=== PATIENT | female | born 1965 | race Hispanic/Latino ===

== ENCOUNTER 2021-05-22 16:51 | Emergency (ER) | payer BC ==
[~2021-05-22] VITALS: Ht 165.1 cm; Wt 99.8 kg
[2021-05-22] MEDS ORDERED: 0.9%NACL 1000ML 1,000 ML IV SCH (17:00)
[2021-05-22 17:02] VITALS: BP 133/83
[2021-05-22 17:29] LABS: BASOPHILS % (AUTO) 0.2 % (0.0-5.0); HEMATOCRIT 40.5 % (36-48); LYMPHOCYTES % (AUTO) 11.6 % (21.0-51.0); MEAN CORPUSCULAR HEMOGLOBIN 26.2 pg (27.0-33.0); MEAN CORPUSCULAR HGB CONC 32.1 g/dL (32.0-36.0); MEAN CORPUSCULAR VOLUME 81.7 fL (79-99); MONOCYTES % (AUTO) 8.7 % (3.0-13.0); PLATELET COUNT (AUTO) 198 K/uL (130-400); RED BLOOD CELL COUNT(AUTO) 4.96 MIL/uL (4.00-5.50); RED CELL DISTRIBUTION WIDTH 13.2 % (11.0-15.5); WHITE BLOOD COUNT (AUTO) 8.4 K/uL (4.8-10.8)
[2021-05-22] MEDS ORDERED: FAMOTIDINE 20MG VIAL IV ONE (17:30)
[2021-05-22] MEDS ORDERED: LIDOCAINE HCL 2% VISCOUS 15 ML UDCUP PO ONE (17:30)
[2021-05-22] MEDS ORDERED: DICYCLOMINE HCL 10 MG/5 ML ML PO ONE (17:30)
[2021-05-22] MEDS ORDERED: ONDANSETRON 4MG INJ IVP ONE (17:30)
[2021-05-22] MEDS ORDERED: MAG/ALUM/SIMETH 30 ML UDCUP PO ONE (17:30)
[2021-05-22 17:36] LABS: APPEARANCE,URINE CLOUDY (CLEAR); BILIRUBIN,URINE NEGATIVE (NEGATIVE); COLOR,URINE YELLOW (YELLOW); GLUCOSE, URINE (UA) NEGATIVE (NEGATIVE); KETONES,URINE 40 mg/dL (NEGATIVE); LEUKOCYTE ESTERASE ,URINE TRACE (NEGATIVE); NITRATE,URINE POSITIVE (NEGATIVE); OCCULT BLOOD,URINE TRACE-INTACT (NEGATIVE); PH,URINE 6.5 (5.0-8.0); PROTEIN,URINE TRACE mg/dL (NEGATIVE)
[2021-05-22 17:48] LABS: BACTERIA,URINE Moderate /HPF (None Seen)
[2021-05-22 17:49] LABS: SQUAMOUS EPITHELIAL CELL,UR Few /HPF (0-2)
[2021-05-22] MEDS ORDERED: CEFTRIAXONE 1G VIAL IVP ONE (18:00)
[2021-05-22 18:02] LABS: ALBUMIN 3.7 g/dL (3.5-5.0); BILIRUBIN,TOTAL 0.5 mg/dL (0.2-1.0); CREATININE 0.9 mg/dL (0.5-1.5); POTASSIUM 3.3 mmol/L (3.5-5.1); TOTAL PROTEIN, SERUM 8.2 g/dL (6.0-8.3)
[2021-05-22] MEDS ORDERED: FAMO-136 PO (18:09)
[2021-05-22] MEDS ORDERED: CEPH500B PO (18:09)
[2021-05-22] MEDS ORDERED: ONDA4TAB10 PO (18:09)
[2021-05-22] MEDS ORDERED: ACETAMINOPHEN 500 MG TABLET ONE (18:09)
[2021-05-22] MEDS ORDERED: DICY20TA2 PO (18:09)
[2021-05-22] MEDS ORDERED: POTASSIUM BICARB/CIT AC 25 MEQ TABLET.EFF PO ONE (18:30)
[2021-05-22] MEDS ORDERED: ACETAMINOPHEN 500 MG TABLET PO ONE (18:30)
== END 2021-05-22 18:28 | disposition home or self-care (01) ==
LOC: EDH 16:51
DX: N39.0 Urinary tract infection, site not specified (principal); K29.70 Gastritis, unspecified, without bleeding; I95.1 Orthostatic hypotension; Z20.822 Contact with and (suspected) exposure to COVID-19; E66.01 Morbid (severe) obesity due to excess calories; Z90.49 Acquired absence of other specified parts of digestive tract; Z68.36 Body mass index [BMI] 36.0-36.9, adult
CPT/HCPCS: 36415; 71045; 80053; 81001; 83605; 83690; 84484; 85025; 87040 ×2; 87077; 87088; 87186; 87635; 87804 ×2; 96361; 96374; 96375; 99284; C9803; J0696; J2405; J3490; J7030

== ENCOUNTER 2025-02-23 13:37 | Emergency (ER) | payer BC, OTHER ==
[~2025-02-23] VITALS: Ht 165.1 cm; Wt 90.7 kg
[~2025-02-23 13:37] MED LIST: CEPH500B PO; DICY20TA2 PO; FAMO-136 PO; ONDA-243 PO
--- NOTE | 2025-02-23 13:45 | ERN ---
ED Note History of Present Illness Stated Complaint: KNEE PAIN Chief Complaint: Knee Injury/Swelling Time Seen by MD: 13:39 Dictation: PATIENT IS A 60 YEAR WITH KNOWN LEFT MEDIAL MENISCUS WHO HAD A FALL AND THAT IS SAME KNEE TODAY. SHE HAS BEEN SEEN BY DR. BOWEN IN [place] AND PENDING A SURGERY NEXT SUMMER ON-CALL. SHE STATES SHE HAS HAD NOTHING PRIOR TO ARRIVAL FOR PAIN. NO SHORTENING OR ROTATION OF LEFT LEG. SHE IS MORBIDLY OBESE. DISTAL NEUROVASCULAR CMS INTACT. Allergies: Coded Allergies: No Known Allergies (Unverified Allergy, Unknown, 05/22/21) Home Meds Active Scripts Famotidine (Pepcid) 20 Mg Tablet, 20 MG PO BID, #60 TAB Prov:ARTEM GIBSON 05/22/21 Ondansetron (Ondansetron Odt) 4 Mg Tab.rapdis, 4 MG PO TIDP, #21 TAB Prov:ARTEM GIBSON 05/22/21 Dicyclomine HCl (Bentyl) 20 Mg Tab, 20 MG PO QIDP, #28 TAB Prov:ARTEM GIBSON 05/22/21 Cephalexin Monohydrate (Keflex) 500 Mg Cap, 500 MG PO TID for 7 Days, #21 CAP Prov:ARTEM GIBSON 05/22/21 Past Medical History Past Medical History: No Pertinent History Additional Past Medical Hx: Morbid obese Surgical History: Cholecystectomy, Family History: Negative Social History: Negative History: Not Applicable RN Note Reviewed/Agreed w/PFSH: Yes Review of System Dictation CONSTITUTIONAL: NEGATIVE EXCEPT FOR HPI HEAD/FACE: NEGATIVE EXCEPT FOR HPI EENT: NEGATIVE EXCEPT FOR HPI RESPIRATORY: NEGATIVE EXCEPT FOR HPI GASTROINTESTINAL/ABDOMINAL: NEGATIVE EXCEPT FOR HPI GENITOURINARY: NEGATIVE EXCEPT FOR HPI MUSCULOSKELETAL: NEGATIVE EXCEPT FOR HPI LEFT KNEE PAIN INTEGUMENTARY: NEGATIVE EXCEPT FOR HPI NEUROLOGICAL/PSYCH: NEGATIVE EXCEPT FOR HPI HEMATOLOGIC/LYMPHATIC: NEGATIVE EXCEPT FOR HPI ALL SYSTEMS NEGATIVE, EXCEPT NOTED ABOVE. 13 POINT REVIEW OF SYSTEMS ASSESSED AND ALL NEGATIVE EXCEPT FOR ABOVE. Initial Vital Sign VS Vital Signs Date Time Temp Pulse Resp B/P (MAP) Pulse Ox O2 Delivery O2 Flow Rate FiO2 02/23/25 13:38 97.0 74 20 104/72 97 Room Air 02/23/25 14:16 0 21 Physical Exam Dictation VITAL SIGNS REVIEWED GENERAL APPEARANCE: ALERT, ORIENTED X 3, MODERATE ACUTE DISTRESS, WELL DEVELOPED, NOURISHED. HEAD AND FACE: NON-TRAUMATIC. EYES: PERRL, PINK CONJUNCTIVAS, EYELID NO TRAUMA, ANTERIOR CHAMBER WITH ARCUS SENILIS. EARS: PINNAS INTACT AND NO SIGNS OF TRAUMA OR ERYTHEMA EAR CANALS CLEAR AND NO DISCHARGE TM NO ERYTHEMA NOSE: NO DISCHARGE, NO BLEEDING. OROPHARYNX: MOUTH NORMAL, TONGUE PINK, PHARYNX CLEAR,NO ERYTHEMA, TONSILS NO EXUDATES, NO ABSCESSES NOTED, MUCOUS MEMBRANE MOIST NECK: SUPPLE, NON-TENDER, NO THYROMEGALY, NO MASSES, NO JVD, NO BRUITS BREAST:DEFERRED CHEST:NO TENDERNESS, NO CREPITUS, NO PARADOXICAL MOVEMENT, NO RETRACTIONS LUNGS:CLEAR, WELL-VENTILATED, SYMMETRIC, NO RALES, NO WHEEZING, NO RHONCHI, NO STRIDOR, GOOD BREATH SOUNDS BILATERALLY HEART: REGULAR RATE, REGULAR RHYTHM, NO MURMUR, NO GALLOPS VASCULAR: NO PERIPHERAL EDEMA, ABDOMEN: SOFT, POSITIVE BOWEL SOUNDS, NONDISTENDED, NO GUARDING, NONTENDER, NO REBOUND, NO MASSES NO HEPATOMEGALY, NO SPLENOMEGALY, NO LANDON'S SIGN, NO HERNIAS. RECTAL: DEFERRED GENITAL: DEFERRED NEUROLOGICAL: NORMAL SPEECH, MOTOR FUNCTION INTACT, SENSORY FUNCTION INTACT MUSCULOSKELETAL: NECK NONTENDER, FULL RANGE OF MOTION, BACK NONTENDER, FULL RANGE OF MOTION, EXTREMITIES: ARTHRITIC CHANGES TO LIFT KNEE WITH MEDIAL SWELLING. DISTAL NEUROVASCULAR CMS INTACT. NO SHORTENING OR ROTATION OF LEFT LEG HIP OR PELVIC SKIN: COLOR PINK, DRY, NO TURGOR, NO RASH, NO LACERATIONS, NO ABRASIONS, NO CONTUSIONS. LYMPHATIC: DEFERRED Results (Laboratory/Radiology) Laboratory/Radiology 1500/left knee x-ray demonstrates degenerative changes only, no fracture Labs Reviewed?: Yes ED Course ED Course Orders Procedure Category Date Status Time Knee 3vws Lt RAD 02/23/25 Taken 13:42 Vital Signs Date Time Temp Pulse Resp B/P (MAP) Pulse Ox O2 Delivery O2 Flow Rate FiO2 02/23/25 14:16 97.0 74 20 104/72 97 Room Air* 0 21 02/23/25 13:38 97.0 74 20 104/72 97 Room Air 1500/knee immobilizer with crutches to lift knee by tech. Neurovascular CMS intact post placed Medical Decision Making MDM Medical decision-making based on HPI and x-ray of left knee. No acute fractures on x-ray Knee was immobilized with crutches provided Distal neurovascular CMS intact to left knee Patient discharged with ibuprofen and prednisone Given rice instructions and to see Dr. Bowen in [place] tomorrow. DX & DISP Disposition: Discharge Departure Impression: Primary Impression: Contusion of left knee, initial encounter Additional Impressions: Fall, History of knee derangement Condition: Stable Scripts Ibuprofen (Ibuprofen 800 mg Tab) 800 Mg Tab 800 MG PO Q8H PRN for fever or pain, #30 TAB 0 Refills Prov: REESE TINSLEY 02/23/25 Prednisone (Prednisone) 20 Mg Tablet 1 TAB PO AD for 6 Days, #14 TAB 0 Refills TAKE 1 TAB BY MOUTH THREE TIMES PER DAY X3 DAYS, THEN TAKE 1 TAB BY MOUTH TWICE A DAY X2 DAYS, THEN TAKE 1 TAB BY MOUTH ONCE A DAY X1 DAY. Take with food Prov: REESE TINSLEY 02/23/25 Additional Instructions: Follow-up with primary care provider in 1 to 2 days. Take medications as directed here in the emergency room. Okay to continue home medications unless otherwise discussed during your visit in the emergency room today. Return to your nearest emergency room if symptoms worsen or if there is no improvement. Call 911 if you need immediate assistance. Take Tylenol or Motrin ove [id number] as needed and if no contraindications are present. Increase oral hydration. A wound culture or urine culture was ordered here in the emergency room department please follow-up with primary care provider and advise them to get repeat ports from our facility. If you had any Rashad wrap/splints that were applied here, please do not remove them until you see your primary care or specialty. Immobilizer/crutches/no weight-bearing until cleared by Dr. Bowen in [place], call him for an appointment tomorrow. Cool compresses to pain three to 4 times a day. Take ibuprofen and prednisone as directed with food for pain. Referrals: SELF,REFERRAL (PCP) Time of Disposition: 14:59 I have reviewed the case, and I agree with, Diagnosis and Plan REESE TINSLEY Feb 23, 2025 13:45
[2025-02-23] MEDS ORDERED: IBUP-2077 PO (15:00)
[2025-02-23] MEDS ORDERED: PRED20TA3 PO (15:00)
--- NOTE | 2025-02-23 15:29 | HMCIMG ---
STUDY CR Left Knee 3 views CLINICAL HISTORY Left knee pain status post fall TECHNIQUE Standard three-view radiographic examination of the left knee COMPARISON None provided FINDINGS Bones No acute fracture or cortical disruption is identified. No aggressive or destructive osseous lesion is seen. Joints There is mild medial compartment joint space narrowing with early marginal osteophyte formation, compatible with mild knee osteoarthritis. Lateral and patellofemoral compartment joint spaces are relatively preserved. No radiographic joint effusion is appreciated. Soft tissues Periarticular soft tissues are unremarkable. No focal soft tissue swelling, calcification, or radiopaque foreign body is identified. IMPRESSION * Mild osteoarthritic changes of the left knee, most pronounced in the medial compartment. * No acute fracture, dislocation, or aggressive osseous lesion. /[place]
[2025-02-23 16:08] VITALS: BP 114/71; PULSE 76; RESP 20; TEMP 97; O2SAT 97
== END 2025-02-23 16:09 | disposition home or self-care (01) ==
LOC: EDH 13:37
DX: S80.02XA Contusion of left knee, initial encounter (principal); E66.01 Morbid (severe) obesity due to excess calories; Z90.49 Acquired absence of other specified parts of digestive tract; Z98.890 Other specified postprocedural states; Z68.33 Body mass index [BMI] 33.0-33.9, adult; W18.39XA Other fall on same level, initial encounter; Y93.89 Activity, other specified; Y92.89 Other specified places as the place of occurrence of the external cause; Y99.8 Other external cause status
CPT/HCPCS: 29505; 73562; 99283